=== PATIENT | female | born 1945 | race Hispanic/Latino ===

== ENCOUNTER 2019-03-20 05:55 | Emergency (ER) | payer OTHER ==
[2019-03-20] MEDS ORDERED: HYDROCODONE/APAP 5/325 MG TAB ONE (06:31)
--- NOTE | 2019-03-20 07:30 | EDPHYS ---
Physician Documentation [facility] Name: Roxanne Knight Age: 73 yrs Sex: Female : 1945 Arrival Date: 03/20/2019 Time: 05:56 Bed 19 Private MD: ED Physician Bryan Molina HPI: 03/20 06:26 This 73 yrs old Female presents to ER via Wheelchair with complaints of Fall jr8 Injury. 06:26 Details of fall: The patient fell from an upright position, while standing. Onset: The jr8 symptoms/episode began/occurred just prior to arrival. Associated injuries: The patient sustained Pain in left wrist, left ankle, and right foot. Severity of symptoms: At their worst the symptoms were mild, in the emergency department the symptoms are unchanged. Pt reports a fall from standing on to tile due to a mechanical fall, is ambulatory in ED, denies head trauma or LOC. Pain complaints only in extremities. Historical: - Allergies: 06:26 Codeine; ch - Home Meds: 06:26 Eliquis oral oral [Active]; Synthroid Oral [Active]; Allopurinol Oral [Active]; ch Tramadol Oral [Active]; Levemir subcutaneous subcutaneous [Active]; amlodipine oral [Active]; Ambien Oral [Active]; meloxicam oral oral [Active]; telmisartan oral oral [Active]; Onglyza oral oral [Active]; Trulicity subcutaneous subcutaneous [Active]; Metoprolol Tartrate Oral [Active]; - PMHx: 06:26 Atrial Fib; Hypertension; Diabetes - IDDM; Hypothyroidism; Gout; ch - PSHx: 06:26 Hysterectomy; Appendectomy; Cholecystectomy; thyroid removed; pacemaker/defibrillator; ch - Immunization history: Last tetanus immunization: - up to date. - Social history:: Smoking status: Patient/guardian denies using tobacco, Patient/guardian denies using alcohol, street drugs. - Ebola Screening: : Patient negative for fever greater than or equal to 101.5 degrees Fahrenheit, and additional compatible Ebola Virus Disease symptoms Patient denies exposure to infectious person Patient denies travel to an Ebola-affected area in the 21 days before illness onset No symptoms or risks identified at this time. ROS: 06:26 Constitutional: Negative for fever, chills, and weight loss, Eyes: Negative for injury, jr8 pain, redness, and discharge, ENT: Negative for injury, pain, and discharge, Neck: Negative for injury, pain, and swelling, Cardiovascular: Negative for chest pain, palpitations, and edema, Respiratory: Negative for shortness of breath, cough, wheezing, and pleuritic chest pain, Abdomen/GI: Negative for abdominal pain, nausea, vomiting, diarrhea, and constipation, Back: Negative for injury and pain. 06:26 MS/extremity: Positive for pain, left wrist, left ankle, right foot. Exam: 06:28 Constitutional: This is a well developed, well nourished patient who is awake, alert, jr8 and in no acute distress. Head/Face: Normocephalic, atraumatic. Eyes: Pupils equal round and reactive to light, extra-ocular motions intact. Lids and lashes normal. Conjunctiva and sclera are non-icteric and not injected. Cornea within normal limits. Periorbital areas with no swelling, redness, or edema. ENT: Nares patent. No nasal discharge, no septal abnormalities noted. Tympanic membranes are normal and external auditory canals are clear. Oropharynx with no redness, swelling, or masses, exudates, or evidence of obstruction, uvula midline. Mucous membranes moist. Neck: Trachea midline, no thyromegaly or masses palpated, and no cervical lymphadenopathy. Supple, full range of motion without nuchal rigidity, or vertebral point tenderness. No Meningismus. Chest/axilla: Normal chest wall appearance and motion. Nontender with no deformity. No lesions are appreciated. Cardiovascular: Regular rate and rhythm with a normal S1 and S2. No gallops, murmurs, or rubs. Normal PMI, no JVD. No pulse deficits. Respiratory: Lungs have equal breath sounds bilaterally, clear to auscultation and percussion. No rales, rhonchi or wheezes noted. No increased work of breathing, no retractions or nasal flaring. Abdomen/GI: Soft, non-tender, with normal bowel sounds. No distension or tympany. No guarding or rebound. No evidence of tenderness throughout. Neuro: Awake and alert, GCS 15, oriented to person, place, time, and situation. Cranial nerves II-XII grossly intact. Motor strength 5/5 in all extremities. Sensory grossly intact. Cerebellar exam normal. Normal gait. 06:28 Musculoskeletal/extremity: ROM: limited active range of motion due to pain, limited passive range of motion due to pain, in the left wrist, Pulses: noted to be 3+ in the right radial artery, right posterior tibial artery, right dorsalis pedis artery, left radial artery, left posterior tibial artery and left dorsalis pedis artery, Sensation intact. Weight bearing: can bear weight with assistance only. Vital Signs: 06:26 BP 159 / 67; Pulse 76; Resp 16; Temp 98.6; Pulse Ox 97% on R/A; Weight 74.39 kg; Height ch 5 ft. 3 in. (160.02 cm); Pain 9/10; 07:00 BP 141 / 81; Pulse 70; Resp 21; Pulse Ox 96% ; bp 06:26 Body Mass Index 29.05 (74.39 kg, 160.02 cm) ch [place] Coma Score: 06:26 Eye Response: spontaneous(4). Verbal Response: oriented(5). Motor Response: obeys commands(6). Total: 15. Trauma Score (Adult): 06:26 Eye Response: spontaneous(1); Verbal Response: oriented(1); Motor Response: obeys commands(2); Systolic BP: > 89 mm Hg(4); Respiratory Rate: 10 to 29 per min(4); [place] Score: 15; Trauma Score: 12 MDM: 06:07 Patient medically screened. jr8 07:25 Data reviewed: vital signs, nurses notes, radiologic studies. Data interpreted: Pulse jr8 oximetry: on room air is 96 %. Interpretation: normal. Counseling: I had a detailed discussion with the patient and/or guardian regarding: the historical points, exam findings, and any diagnostic results supporting the discharge/admit diagnosis, radiology results, the need for outpatient follow up, a orthopedic surgeon. Special discussion: Based on the history and exam findings, there is no indication for further emergent testing or inpatient evaluation. I discussed with the patient/guardian the need to see the orthopedic surgeon for further evaluation of the symptoms. ED course: Pt with transverse buckle fracture to left distal radius. Pt has ortho doctor in [facility] where she lives and will FU with the, CMS intact distal to injury. 03/20 06:22 Order name: Foot Right 3 View XRAY jr8 03/20 06:22 Order name: Ankle Left 3 View XRAY jr8 03/20 06:22 Order name: Wrist Left (3 View) XRAY jr8 03/20 07:21 Order name: Jigna Tong Forearm Splint; Complete Time: 07:40 jr8 03/20 07:47 Order name: Sling; Complete Time: 07:47 bp Administered Medications: 06:35 Drug: [place] 5 mg-325 mg 1 tabs Route: PO; fu 07:40 Follow up: Response: Pain is decreased bp Disposition: 11:28 Co-signature as Attending Physician, Bryan Molina MD I agree with the assessment and kdr plan of care. Disposition: 03/20/19 07:29 Discharged to Home. Impression: Nondisplaced Fracture of the Left Distal Radius. - Condition is Stable. - Discharge Instructions: Musculoskeletal Pain, Radial Fracture. - Medication Reconciliation Form, Thank You Letter form. - Follow up: Private Physician; When: 2 - 3 days; Reason: Recheck today's complaints, Re-evaluation by your physician. - Problem is new. - Symptoms have improved. Signatures: Dispatcher [employer] EDMaria Elena Parsons, RN RN Bryan Molina MD MD [facility] Candelario Sanches PA PA jr8 Charlie Walter, Victor Hugo Dobbins RN, RN RN bp Corrections: (The following items were deleted from the chart) 07:56 07:29 03/20/2019 07:29 Discharged to Home. Impression: Nondisplaced Fracture of the bp Left Distal Radius. Condition is Stable. Forms are Medication Reconciliation Form, Thank You Letter, Antibiotic Education, Prescription Opioid Use. Follow up: Private Physician; When: 2 - 3 days; Reason: Recheck today's complaints, Re-evaluation by your physician. Problem is new. Symptoms have improved. jr8
--- NOTE | 2019-03-20 07:30 | ER ---
Nurse's Notes [facility] Name: Roxanne Knight Age: 73 yrs Sex: Female : 1945 Arrival Date: 03/20/2019 Time: 05:56 Bed 19 Private MD: Diagnosis: Nondisplaced Fracture of the Left Distal Radius Presentation: 03/20 06:11 Presenting complaint: Patient states: I slipped in water today around 0500. my L leg ch went back and I think I broke my L wrist. Care prior to arrival: None. Mechanism of Injury: Fall from standing position. Trauma event details: Injury occurred in the [facility], Injury occurred: at home. Injury occurred: March 20, 2019 Injury occurred at: 05:00. 06:11 Acuity: ELVIRA 3 06:11 Method Of Arrival: Wheelchair 06:29 Transition of care: patient was not received from another setting of care. Onset of symptoms was March 20, 2019 at 05:00. Risk Assessment: Do you want to hurt yourself or someone else? Patient reports no desire to harm self or others. Initial Sepsis Screen: Does the patient meet any 2 criteria? No. Patient's initial sepsis screen is negative. Does the patient have a suspected source of infection? No. Patient's initial sepsis screen is negative. Triage Assessment: 06:29 General: Appears in no apparent distress. uncomfortable, well groomed. Trauma Activation: Alert Physician: ED Physician; Name: ; Notified At: ; Arrived At: Physician: General Surgeon; Name: ; Notified At: ; Arrived At: Physician: Radiology; Name: ; Notified At: ; Arrived At: Physician: Respiratory; Name: ; Notified At: ; Arrived At: Physician: Lab; Name: ; Notified At: ; Arrived At: Historical: - Allergies: 06: Codeine; ch - Home Meds: :26 Eliquis oral oral [Active]; Synthroid Oral [Active]; Allopurinol Oral [Active]; ch Tramadol Oral [Active]; Levemir subcutaneous subcutaneous [Active]; amlodipine oral [Active]; Ambien Oral [Active]; meloxicam oral oral [Active]; telmisartan oral oral [Active]; Onglyza oral oral [Active]; Trulicity subcutaneous subcutaneous [Active]; Metoprolol Tartrate Oral [Active]; - PMHx: 06:26 Atrial Fib; Hypertension; Diabetes - IDDM; Hypothyroidism; Gout; ch - PSHx: 06:26 Hysterectomy; Appendectomy; Cholecystectomy; thyroid removed; pacemaker/defibrillator; ch - Immunization history: Last tetanus immunization: - up to date. - Social history:: Smoking status: Patient/guardian denies using tobacco, Patient/guardian denies using alcohol, street drugs. - Ebola Screening: : Patient negative for fever greater than or equal to 101.5 degrees Fahrenheit, and additional compatible Ebola Virus Disease symptoms Patient denies exposure to infectious person Patient denies travel to an Ebola-affected area in the 21 days before illness onset No symptoms or risks identified at this time. Screenin:26 Abuse screen: Denies threats or abuse. Denies injuries from another. Tuberculosis ch screening: No symptoms or risk factors identified. 06:30 Nutritional screening: No deficits noted. Fall Risk Fall in past 12 months (25 points). Secondary diagnosis (15 points) No IV (0 pts). Ambulatory Aid- None/Bed Rest/Nurse Assist (0 pts). Gait- Normal/Bed Rest/Wheelchair (0 pts) Mental Status- Oriented to own ability (0 pts). Total Valdez Fall Scale indicates Low Risk Score (25-44 pts). Fall prevention measures have been instituted. Side Rails Up X 2 Placed close to Nursing Station Frequent Obs/Assesments occuring Family Present and informed to notify staff if they need to leave bedside As available Patient and Family Educated on Fall Prevention Program and strategies. Primary Survey: 06:26 NO uncontrolled hemorrhage observed. Breathing/Chest: Respiratory pattern: regular, Respiratory effort: spontaneous, unlabored, Breath sounds: clear. Circulation: Pulses: palpable bilateral radial, brachial, femoral, popliteal, posterior tibial and and dorsalis pedis arteries.. Disability Alert. Exposure/Environment: All clothing and personal items were removed. Forensic evidence collection is not deemed to be indicated at this time. Items placed in patient belonging bag. There is no evidence of uncontrolled external bleeding. Obvious injury(ies) are noted at this time: pt has deformity to L wrist, swelling to L ankle. A warming method has been applied: A warm blanket has been provided to the patient. 07:56 Reassessment Breathing/Chest Respiratory pattern Regular Respiratory effort Spontaneous bp Unlabored. Secondary Survey: 06:26 HEENT: No deficits noted. Gastrointestinal: Abdomen is soft, Bowel sounds present in all quadrants. Palpation No deficit noted. : No signs and/or symptoms were reported regarding the genitourinary system. Musculoskeletal: Capillary refill < 3 seconds, in bilateral fingers. toes. Swelling present in anterior aspect of left ankle and left wrist. Assessment: 06:11 General: Appears in no apparent distress. uncomfortable, Behavior is calm, cooperative, ch appropriate for age. Pain: Complains of pain in right second toe, Right second toenail, left knee and anterior aspect of left ankle Pain currently is 9 out of 10 on a pain scale. Pain began suddenly. Neuro: Level of Consciousness is awake, alert, obeys commands, Oriented to person, place, time, situation. Cardiovascular: Heart tones S1 S2 present Capillary refill < 3 seconds in bilateral fingers toes Clubbing of nail beds is absent Patient's skin is warm and dry. Respiratory: Airway is patent Respiratory effort is even, unlabored, Breath sounds are clear bilaterally. Derm: Skin is pink, warm \T\ dry. 07:00 Reassessment: RECD REPORT FROM MARIA ELENA CORONA. 73YO HF S/P FALL IN SHOWER, C/O PAIN TO bp LUE AND LLE. XRAY AT B/S. 07:37 Reassessment: D/C ON HOLD FOR SPLINT PLACEMENT. bp 07:54 Reassessment: PT D/C HOME VIA W/C WITH FAMILY, DX WITH DISTAL LEFT RADIUS FRACTURE. bp Vital Signs: 06:26 BP 159 / 67; Pulse 76; Resp 16; Temp 98.6; Pulse Ox 97% on R/A; Weight 74.39 kg; Height 5 ft. 3 in. (160.02 cm); Pain 9/10; 07:00 BP 141 / 81; Pulse 70; Resp 21; Pulse Ox 96% ; bp 06:26 Body Mass Index 29.05 (74.39 kg, 160.02 cm) [place] Coma Score: 06:26 Eye Response: spontaneous(4). Verbal Response: oriented(5). Motor Response: obeys commands(6). Total: 15. Trauma Score (Adult): 06:26 Eye Response: spontaneous(1); Verbal Response: oriented(1); Motor Response: obeys ch commands(2); Systolic BP: > 89 mm Hg(4); Respiratory Rate: 10 to 29 per min(4); [place] Score: 15; Trauma Score: 12 ED Course: 05:56 Patient arrived in ED. es 06:07 Candelario Sanches PA is PHCP. jr8 06:07 Bryan Molina MD is Attending Physician. jr8 06:10 Maria Elena Wood, RN is Primary Nurse. ch 06:12 Triage completed. ch 06:26 Patient has correct armband on for positive identification. Placed in gown. Bed in low ch position. Call light in reach. Side rails up X 1. Adult w/ patient. 06:26 Patient maintains SpO2 saturation greater than 95% on room air. Thermoregulation: warm ch blanket given to patient. 06:29 Patient placed in an exam room, on a stretcher, on teletypesetter monitor, on pulse oximetry. ch 06:30 lunchroom monitor on. Pulse ox on. NIBP on. Warm blanket given. ch 06:30 Missed attempt(s): 20 gauge in right forearm. 22 gauge in right forearm. Bleeding ch controlled, band aid applied, catheter tip intact. pt L wrist elevated and ice pack placed. 06:58 Report given to Victor Hugo. ch 07:06 Victor Hugo Freeman, RN is Primary Nurse. bp 07:21 Foot Right 3 View XRAY In Process Unspecified. EDMS 07:21 Ankle Left 3 View XRAY In Process Unspecified. EDMS 07:21 Wrist Left (3 View) XRAY In Process Unspecified. EDMS 07:45 Orthoglass splint: Sugar tong splint applied on left arm. Sling applied to left arm. bp 07:54 No provider procedures requiring assistance completed. Patient did not have IV access bp during this emergency room visit. Administered Medications: 06:35 Drug: [place] 5 mg-325 mg 1 tabs Route: PO; fu 07:40 Follow up: Response: Pain is decreased bp Intake: 06:26 PO: 0ml; Total: 0ml. ch Outcome: 07:29 Discharge ordered by . jr8 07:55 Discharged to home via wheelchair, with family. bp 07:55 Condition: stable 07:55 Discharge instructions given to patient, Instructed on discharge instructions, follow up and referral plans. Demonstrated understanding of instructions, follow-up care, splint care. 07:56 Patient's length of stay was not longer than 2 hours. bp 07:56 Patient left the ED. bp Signatures: Dispatcher [employer] Maria Elena Louie, RN RN Annie Sheets Josh, PA PA jr8 Charlie Walter RN RN fu Peltier, Brian RN RN bp
--- NOTE | 2019-03-20 07:58 | RAD REPORT ---
EXAM DESCRIPTION: RAD - Ankle Left 3 View -03/20/2019 7:20 am CLINICAL HISTORY: Left ankle pain status post injury FINDINGS: Curvilinear densities lies superior to the anterior talus and navicular. One or both could represent avulsion fractures. Clinical correlation is needed to see if patient has point tenderness in this region to suggest a fracture. Bones are osteoporotic. No dislocation. Large calcaneal spurs
[2019-03-20 08:01] VITALS: TEMP 98.6
--- NOTE | 2019-03-20 08:01 | RAD REPORT ---
EXAM DESCRIPTION: RAD - Foot Right 3 View - 03/20/2019 7:20 am CLINICAL HISTORY: Right foot pain status post injury FINDINGS: No fracture or dislocation is seen Vascular calcifications Large calcaneal spurs
--- NOTE | 2019-03-20 08:02 | RAD REPORT ---
EXAM DESCRIPTION: RAD - Wrist Left 3 View - 03/20/2019 7:20 am CLINICAL HISTORY: Left wrist pain status post injury FINDINGS: Impaction mildly to moderately displaced fracture involves the distal radius. Avulsion fracture of the ulnar styloid process No dislocation Osteoporosis
[2019-03-20 08:03] VITALS: BP 141/81; O2SAT 96
== END 2019-03-20 07:56 | disposition home or self-care (01) ==
LOC: ER 05:55
PROC: 2W3DX1Z Immobilization of Left Lower Arm using Splint (ICD-10-PCS; principal; 2019-03-20)
DX: S52.502A Unspecified fracture of the lower end of left radius, initial encounter for closed fracture (principal); W01.0XXA Fall on same level from slipping, tripping and stumbling without subsequent striking against object, initial encounter; Y93.9 Activity, unspecified; Y92.019 Unspecified place in single-family (private) house as the place of occurrence of the external cause; Z88.6 Allergy status to analgesic agent; I10 Essential (primary) hypertension; E11.9 Type 2 diabetes mellitus without complications; E03.9 Hypothyroidism, unspecified; I48.91 Unspecified atrial fibrillation; Z95.0 Presence of cardiac pacemaker
CPT/HCPCS: 99285